=== PATIENT | female | born 1980 | race Caucasian/White ===

== ENCOUNTER 2021-12-11 10:27 | Emergency (ER) | payer MEDICAID, SELFPAY ==
[2021-12-11 11:00] VITALS: BP 102/67; PULSE 68; RESP 16; TEMP 36.7; O2SAT 95; BMI 22.7
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
[2021-12-11] MEDS: ketorolac 60 mg/2 mL INJ IM (11:46)
[2021-12-11] MEDS: orphenadrine 30 mg/mL Inj 2 mL 60 MG IM (11:46)
[2021-12-11 12:33] VITALS: BP 103/68; PULSE 57; RESP 16; O2SAT 100
[2021-12-11 12:49] VITALS: BP 103/68; PULSE 57; RESP 16; O2SAT 100
== END 2021-12-11 12:50 | disposition home or self-care (01) ==
PROVIDERS: Emergency Provider Physician Assistant
DX: T74.11XA Adult physical abuse, confirmed, initial encounter (principal); S39.012A Strain of muscle, fascia and tendon of lower back, initial encounter; F41.9 Anxiety disorder, unspecified; Y04.2XXA Assault by strike against or bumped into by another person, initial encounter
CPT/HCPCS: 70450; 73130; 96372; 99283; J1885; J2360